=== PATIENT | female | born 1955 | race Caucasian/White ===

== ENCOUNTER 2018-08-27 11:07 | Emergency (ER) | payer OTHER ==
[~2018-08-27] VITALS: Ht 152.4 cm; Wt 62.6 kg
[2018-08-27 11:09] VITALS: Ht 152.4 cm; Wt 62.6 kg
[2018-08-27] MEDS ORDERED: IOHEXOL 100 ML ONE (11:45)
[2018-08-27] MEDS ORDERED: SOD CHLORIDE 0.9% 100 ML ONE (11:45)
[2018-08-27] MEDS ORDERED: ASPIRIN 325 MG TAB PO ONE (12:00)
--- NOTE | 2018-08-27 12:02 | STROKE ---
Date/Time of Note Date/Time of Note DATE: 08/27/18 TIME: 14:59 Patient Information General Arrival Date Age 62 Gender female Weight 62.6 kg POC Glucose Glucose Result Bedside Glucose - 72 Hours Test 08/27/18 11:25 Bedside Glucose 99 mg/dL (70-220) Vital Signs Vital Signs Vital Signs Date Temp Pulse Resp B/P (MAP) Pulse Ox O2 O2 Flow FiO2 Time Delivery Rate 08/27/18 52 18 156/78 100 Room Air 11:25 (104) 08/27/18 97.0 11:09 Labs Coagulation Labs: Coagulation Test 08/27/18 11:20 Activated Partial Thromboplast Time 27.3 Sec (23.0-35.0) NIH Stroke Scale NIH Stroke Scale Date/Time Recorded DATE: 08/27/18 TIME: 14:59 Submitted By Ruddy Shelton t-PA Imaging Review Date/Time Imaging Reviewed DATE: 08/27/18 TIME: 14:59 t-PA Administration Weight 62.6 kg Recommedation submitted by Ruddy Shelton Recommendations Recommendation 62-year-old right-handed female presenting with right sided symptoms beginning at 9;45 am while at [employer]. it started with right arm paresthesias that then spread to her right leg and right face over the course of about 30 minutes. subsequently, she had a headache that persists until this time. her blood pressure was markedly elevated at 204/86 when she arrived. it spontaneously corrected to 156/78. glucose is 99. earlier in her er visit, it was thought that perhaps she had some right arm or leg weakness. on my exam, her nih stroke scale is 1 and that is for differing sensation from the right side to the left. no drift or ataxia detected. her noncontrast head ct was normal. i suggested to her that she may have experienced hypertensive urgency. this also may have been a tia or complex migraine. she should be admitted for an mri which will help reduce the differential diagnosis. she can receive as pirin in the emergency room. RUDDY SHELTON MD Aug 27, 2018 12:02
--- NOTE | 2018-08-27 12:05 | ERD ---
ER Documentation Chief Complaint Chief Complaint NUMBNESS ON RIGHT SIDE OF BODY X 2 HRS, NO WEAKNESS, NO FACIAL DROOP HPI 62-year old female presents to the emergency department complaining of heaviness on the right side of her body. Patient was in her usual state of health until approximately 10 AM (last known well time) at which time she was at [employer]. She began developing what she describes as a heaviness, tingling and numbness on the right side of her body. Began in the right side of her face on the right side of her arm and spread to the right side of her leg. She reported a mild headache concurrent with this. She reported no left-sided symptoms. She reported no focal weakness or numbness but stated that she had some difficulty writing with her normally dominant right hand. She reported no difficulty with speech or comprehension or vision. ROS All systems reviewed and are negative except as per history of present illness. FmHx Noncontributory for chief complaint with no history of early stroke Physical Exam Vitals Vital Signs Date Temp Pulse Resp B/P (MAP) Pulse Ox O2 O2 Flow FiO2 Time Delivery Rate 08/27/18 52 18 156/78 100 Room Air 11:25 (104) 08/27/18 97.0 58 17 204/86 99 11:09 (125) Physical Exam GENERAL: The patient is well developed and appropriate for usual state of health in no apparent distress HEENT: Pupils equal, round, and reactive to light. EOMI. There is no scleral icterus. NECK: C-spine is soft and supple, there is no meningismus. There is no cervical lymphadenopathy. LUNGS: Clear to auscultation bilaterally. There are no rales, wheezes or rhonchi. HEART: Regular rate and rhythm, no murmurs, clicks, rubs or gallops. ABDOMEN: Soft, non-tender, non-distended. There are bowel sounds in all four quadrants. No rebound or guarding. EXTREMITIES: There is no peripheral cyanosis or edema. No focal swelling or erythema. NEURO: Awake, alert, oriented. Normal speech and comprehension. Extraocular movements are intact. Visual acuity is normal with no visual field deficits. Face is symmetric with normal smile and eye movement. Gag reflex is normal. Motor strength is 5 out of 5 throughout all extremities. Sensory exam is grossly nonfocal as well. Finger-nose is normal bilaterally. SKIN: There is no apparent rash or petechiae. HEME/LYMPHATIC: There is no evidence of excessive bruising or lymphedema. PSYCHIATRIC: The patient does not appear anxious or depressed. Result Diagram: 08/27/18 1120 08/27/18 1120 Results 24 hrs Laboratory Tests Test 08/27/18 11:20 08/27/18 11:25 White Blood Count 8.8 10^3/ul Red Blood Count 5.04 10^6/ul Hemoglobin 14.3 g/dl Hematocrit 43.8 % Mean Corpuscular Volume 86.9 fl Mean Corpuscular Hemoglobin 28.4 pg Mean Corpuscular Hemoglobin Concent 32.6 g/dl Red Cell Distribution Width 13.9 % Platelet Count 359 10^3/UL Mean Platelet Volume 8.6 fl Immature Granulocytes % 0.200 % Neutrophils % 47.9 % Lymphocytes % 38.2 % Monocytes % 10.4 % Eosinophils % 2.6 % Basophils % 0.7 % Nucleated Red Blood Cells % 0.0 /100WBC Immature Granulocytes # 0.020 10^3/ul Neutrophils # 4.2 10^3/ul Lymphocytes # 3.4 10^3/ul Monocytes # 0.9 10^3/ul Eosinophils # 0.2 10^3/ul Basophils # 0.1 10^3/ul Nucleated Red Blood Cells # 0.0 10^3/ul Prothrombin Time 12.5 Sec Prothrombin Time Ratio 1.0 INR International Normalized Ratio 0.92 Activated Partial Thromboplast Time 27.3 Sec Sodium Level 142 mmol/L Potassium Level 3.9 mmol/L Chloride Level 106 mmol/L Carbon Dioxide Level 30 mmol/L Anion Gap 6 Blood Urea Nitrogen 13 mg/dl Creatinine 0.79 mg/dl Est Glomerular Filtrat Rate mL/min > 60 mL/min Glucose Level 101 mg/dl Hemoglobin A1c 5.3 % Calcium Level 9.8 mg/dl Creatine Kinase 135 IU/L Creatine Kinase Index 0.9 Creatinine Kinase MB (Mass) 1.22 ng/ml Troponin I < 0.012 ng/ml Triglycerides Level 222 mg/dl Cholesterol Level 173 mg/dl LDL Cholesterol, Calculated 85 mg/dl HDL Cholesterol 44 mg/dl Cholesterol/HDL Ratio 3.9 RATIO Ethyl Alcohol Level < 10.0 mg/dl Bedside Glucose 99 mg/dL Current Medications Medications Dose Sig/Elijah Start Time Status Last (Trade) Ordered Route PRN Stop Time Admin Dose Reason Admin Iohexol 100 ml @ ud STK-MED 08/27/18 DC 08/27/18 ONCE .ROUTE 11:45 08/27/18 11:48 11:46 Sodium 100 ml @ ud STK-MED 08/27/18 DC 08/27/18 Chloride ONCE .ROUTE 11:45 08/27/18 11:49 11:46 Aspirin 325 mg ONCE ONCE 08/27/18 DC (Aspirin) PO 12:00 08/27/18 12:01 Procedures/MDM Patient was taken to a room, seen and evaluated. Comfort measures were initiated. A code stroke process was initiated Diagnostic tests were ordered and reviewed. 3 LEAD RHYTHM STRIP: Sinus bradycardia EK lead EKG reviewed by myself: Sinus bradycardia Normal [place] and intervals No ST elevation, depression, or T wave inversion Impression: Normal EKG other than the bradycardia RADIOLOGY: 1138: Code stroke CT was reviewed by the radiologist showing no indications of acute hemorrhage. 1210: CTA reviewed w/ radiology- no LVO CONSULTATION: 1122: Code stroke process was initiated and tele-neurology was paged 1200: Complete consultation via telemedicine device by the tele-neurologist was performed. This indicated a completely normal neurologic examination with an NIHSS of 0 REEVALUATION: Patient's initial neurologic examination showed an NIHSS of possibly 1. This resolved to an NIHSS of 0 upon reevaluation at 1200 p.m. MEDICAL DECISION MAKING: Patient presents with acute neurologic changes concerning for a stroke. Patient's initial presenting symptoms were mild at best and resolved completely normal. Based on her resolution of symptoms this may be a TIA especially given her high blood pressure which spontaneously controlled. Her symptoms did seem to resolve/improve upon resolution of her hypertension and this may be causative of her symptoms. She will be admitted for MRI and further diagnostic work-up Critical care time:> 35 minutes Critical care has included ongoing critical monitoring of neurologic as well as hemodynamic status. Multiple consultations including: Code stroke: Upon arrival Tele neurology: 1123 Radiology: As above TPA: Not a candidate as she has had complete resolution of symptoms Intravascular decision making: Not a candidate as the patient has had complete resolution of symptoms Departure Diagnosis: Primary Impression: TIA (transient ischemic attack) Additional Impression: Accelerated hypertension Condition: JESSY Velez Aug 27, 2018 12:05
[2018-08-27] MEDS ORDERED: ONDANSETRON 4 MG INJ IV PRN ×2 (12:30→15:00)
[2018-08-27] MEDS ORDERED: ACETAMINOPHEN 325 MG TAB PO PRN ×2 (12:30→15:00)
[2018-08-27] MEDS ORDERED: FAMO20TA18 PO (12:32)
[2018-08-27] MEDS ORDERED: CALC-133 PO (12:33)
--- NOTE | 2018-08-27 14:54 | HP ---
Date/Time of Note Date/Time of Note DATE: 08/27/18 TIME: 14:48 Assessment/Plan VTE Prophylaxis Pharmacological prophylaxis: LMWH Lines/Catheters IV Catheter Type [facility]from [facility] [place] Assessment/Plan Hospital Course 1. Right-sided weakness secondary to TIA versus atypical migraine hemiplegia Patient's symptoms of right-sided weakness with elevated blood pressure do raise concerns for TIA Migraine hemiplegia on differential merely because of headache which coincided with onset of symptoms Follow-up on MRI brain, carotid ultrasound and 2D echo Neurology consultation obtained Blood pressure now stable 2. Hypertensive urgency Patient has no history of hypertension, blood pressure now stable without medical intervention Monitor Prophylaxis: Lovenox Result Diagram: 08/27/18 1120 08/27/18 1120 Results 24hrs Laboratory Tests Test 08/27/18 11:20 08/27/18 11:25 08/27/18 12:32 White Blood Count 8.8 Red Blood Count 5.04 Hemoglobin 14.3 Hematocrit 43.8 Mean Corpuscular Volume 86.9 Mean Corpuscular Hemoglobin 28.4 L Mean Corpuscular Hemoglobin Concent 32.6 Red Cell Distribution Width 13.9 Platelet Count 359 Mean Platelet Volume 8.6 Immature Granulocytes % 0.200 Neutrophils % 47.9 Lymphocytes % 38.2 Monocytes % 10.4 Eosinophils % 2.6 Basophils % 0.7 Nucleated Red Blood Cells % 0.0 Immature Granulocytes # 0.020 Neutrophils # 4.2 Lymphocytes # 3.4 H Monocytes # 0.9 Eosinophils # 0.2 Basophils # 0.1 Nucleated Red Blood Cells # 0.0 Prothrombin Time 12.5 Prothrombin Time Ratio 1.0 INR International Normalized Ratio 0.92 Activated Partial Thromboplast Time 27.3 Sodium Level 142 Potassium Level 3.9 Chloride Level 106 Carbon Dioxide Level 30 Anion Gap 6 Blood Urea Nitrogen 13 Creatinine 0.79 Est Glomerular Filtrat Rate mL/min > 60 Glucose Level 101 Hemoglobin A1c 5.3 Calcium Level 9.8 Creatine Kinase 135 Creatine Kinase Index 0.9 Creatinine Kinase MB (Mass) 1.22 Troponin I < 0.012 Triglycerides Level 222 H Cholesterol Level 173 LDL Cholesterol, Calculated 85 HDL Cholesterol 44 Cholesterol/HDL Ratio 3.9 Ethyl Alcohol Level < 10.0 H Bedside Glucose 99 Urine Color COLORLESS Urine Clarity CLEAR Urine pH 8.0 Urine Specific [place] 1.026 Urine Ketones NEGATIVE Urine Nitrite NEGATIVE Urine Bilirubin NEGATIVE Urine Urobilinogen NEGATIVE Urine Leukocyte Esterase NEGATIVE Urine Hemoglobin NEGATIVE Urine Glucose NEGATIVE Urine Total Protein NEGATIVE Urine Opiates Screen Negative Urine Barbiturates Negative Urine Amphetamines Screen Negative Urine Benzodiazepines Screen Negative Urine Cocaine Screen Negative Urine Cannabinoids Negative HPI/ROS Admit Date/Time Admit Date/Time August 27, 2018 Hx of Present Illness Patient is a 62-year-old female with no medical history, patient presents with right-sided weakness involving upper and lower extremities that began this morning. Patient states that she initially felt numbness and tingling in her hands and feet and ultimately reported weakness in her lower extremity. Patient had no reported difficulties with speech and no facial droop. Patient did report a headache that began immediately after the onset of symptoms. Patient denies any chest pain, fever or chills. Patient has no history of stroke. In the ER patient's systolic blood pressure was greater than 200 and has since normalized on its own. CT head in the ER shows no significant findings and CT of the head and neck show mild intracranial atherosclerotic calcifications. Patient symptoms have resolved and she currently denies any weakness. ROS Constitutional: no complaints, improved Eyes: no complaints ENT: no complaints Respiratory: no complaints Cardiovascular: no complaints Gastrointestinal: no complaints Genitourinary: no complaints Musculoskeletal: no complaints Skin: no complaints Neurologic: focal-weakness, headache Endocrine: no complaints Lymphatic: no complaints Psychological: no complaints, nl mood/affect Immunologic: no complaints PMH/Family/Social Past Medical History Medical History: no pertinent history Medications Current Medications Ondansetron HCl (Zofran Inj) 4 mg ER BRIDGE PRN IV NAUSEA/VOMITING; Start 08/27/18 at 12:30; Stop 08/28/18 at 12:29 Acetaminophen (Tylenol Tab) 650 mg ER BRIDGE PRN PO .MILD PAIN 1-3 OR TEMP; Start 08/27/18 at 12:30; Stop 08/28/18 at 12:29 Coded Allergies: No Known Allergy (Unverified , 08/27/18) Family History Significant Family History: no pertinent family hx Social History Alcohol Use: none Smoking Status: Never smoker Drug Use: none Exam/Review of Systems Vital Signs Vitals Vital Signs Date Temp Pulse Resp B/P (MAP) Pulse Ox O2 O2 Flow FiO2 Time Delivery Rate 08/27/18 98.9 51 22 137/79 99 Room Air 12:28 (98) Exam Constitutional: alert, oriented Respiratory: clear to auscultation Cardiovascular: regular rate and rhythm Gastrointestinal: soft; No distended Musculoskeletal: nl extremities to inspection Neurological: [employer] II-XII intact, nl strength; No focal weakness LILLY HAMM Aug 27, 2018 14:54
[2018-08-27] MEDS ORDERED: morphine 2 MG INJ IV PRN (15:00)
[2018-08-27] MEDS ORDERED: NACL 0.9% 3 ML SYG IV SCH (15:00)
[2018-08-27] MEDS ORDERED: hydrALAzine 20 MG INJ IV PRN (15:00)
[2018-08-27] MEDS ORDERED: HYDROCODONE/APAP (5/325) TAB PO PRN (15:00)
[2018-08-27] MEDS ORDERED: ZOLPIDEM 5 MG TAB PO PRN (15:00)
[2018-08-27] MEDS ORDERED: LORAZEPAM 0.5 MG TAB PO ONE (16:00)
[2018-08-27] MEDS ORDERED: ATORVASTATIN 40 MG TAB PO SCH (21:00)
[2018-08-27] MEDS ORDERED: FAMOTIDINE 20 MG TAB PO SCH (21:00)
[2018-08-27] MEDS ORDERED: CALCIUM/VITAMIN D (500/200) TAB PO SCH (21:00)
[2018-08-28] MEDS ORDERED: ASPIRIN (EC) 325 MG TAB PO SCH (09:00)
[2018-08-28] MEDS ORDERED: ENOXAPARIN 40 MG/0.4 ML SYG SC SCH (09:00)
--- NOTE | 2018-08-28 12:29 | CONSI ---
Assessment/Plan Assessment/Plan Assessment/Plan (Recall) 62 F c/o known cerebrovascular risk factors, who presents for evaluation of transient right sided weakness and numbness... The clinical picture is most ominously concerning for TIA/minor stroke. Complicated migraine is a Dx of exclusion... Head CT is without acute pathology CTA Head and Neck shows mild intracranial athero UDS neg; a1c nl; LDL 85 P: MRI brain for further characterization Await echo read Add ESR, RPR Agree w/ asa/lipitor daily for now PT/OT/ST not presently indicated Other management and supportive care per primary Will follow clinically Consultation Date/Type/Reason Admit Date/Time August 27, 2018 Type of Consult Neurology Reason for Consultation transient weakness and sensory loss Requesting Provider: LILLY HAMM Date/Time of Note DATE: 08/28/18 TIME: 12:24 Hx of Present Illness Patient is a 62-year-old female with no medical history, patient presents with right-sided weakness involving upper and lower extremities that began this morning. Patient states that she initially felt numbness and tingling in her hands and feet and ultimately reported weakness in her lower extremity. Patient had no reported difficulties with speech and no facial droop. Patient did report a headache that began immediately after the onset of symptoms. Patient denies any chest pain, fever or chills. Patient has no history of stroke. In the ER patient's systolic blood pressure was greater than 200 and has since normalized on its own. CT head in the ER shows no significant findings and CT of the head and neck show mild intracranial atherosclerotic calcifications. Patient symptoms have resolved and she currently denies any weakness. per HPI Objective Exam Vitals Vital Signs Date Temp Pulse Resp B/P (MAP) Pulse Ox O2 O2 Flow FiO2 Time Delivery Rate 08/28/18 47 16 123/61 100 Room Air 05:42 (81) 08/27/18 98.9 12:28 Exam PE: Gen Appearance: No Apparent Distress HEENT: Normocephalic Cardiovascular: Regular rate Lungs: Clear bilaterally Abdomen: Soft Extremities: Dry NE: The patient was alert and oriented, able to spell WORLD backwards, and able to recall all three words after a five minute delay. Language was normal. Fund of knowledge was normal. Pupils were equal and reactive to light. There was no afferent pupillary defect. Visual johnson were normal. Funduscopic examination was limited. Extra-ocular movements were full. Ptosis was absent. There was no nystagmus. Facial sensation was normal. Face was symmetric with normal strength. Hearing was intact. Palate movements were normal. Neck strength was normal. There was normal tongue bulk and speed of movement. Tone was normal. Muscle bulk was normal. I did not see fasciculations. Arms and legs were strong. Vibration sensation was normal. Temperature and pinprick sensation was normal. Rapid alternating movements were normal. There was no dysmetria. There was no intention tremor. Gait was deferred due to bedrest. Arm and leg reflexes were 2+ and symmetric. Sanders's sign was absent. Plantar responses were flexor. Results Result Diagram: 08/28/18 0555 08/28/18 0555 Results 24hrs Laboratory Tests Test 08/27/18 12:32 08/28/18 05:55 Urine Color COLORLESS Urine Clarity CLEAR Urine pH 8.0 Urine Specific [place] 1.026 Urine Ketones NEGATIVE Urine Nitrite NEGATIVE Urine Bilirubin NEGATIVE Urine Urobilinogen NEGATIVE Urine Leukocyte Esterase NEGATIVE Urine Hemoglobin NEGATIVE Urine Glucose NEGATIVE Urine Total Protein NEGATIVE Urine Opiates Screen Negative Urine Barbiturates Negative Urine Amphetamines Screen Negative Urine Benzodiazepines Screen Negative Urine Cocaine Screen Negative Urine Cannabinoids Negative White Blood Count 7.0 # Red Blood Count 4.76 Hemoglobin 13.7 Hematocrit 41.3 Mean Corpuscular Volume 86.8 Mean Corpuscular Hemoglobin 28.8 L Mean Corpuscular Hemoglobin Concent 33.2 Red Cell Distribution Width 13.9 Platelet Count 330 Mean Platelet Volume 8.6 Immature Granulocytes % 0.100 Neutrophils % 46.0 Lymphocytes % 38.9 Monocytes % 10.0 Eosinophils % 4.0 Basophils % 1.0 Nucleated Red Blood Cells % 0.0 Immature Granulocytes # 0.010 Neutrophils # 3.2 Lymphocytes # 2.7 Monocytes # 0.7 Eosinophils # 0.3 Basophils # 0.1 Nucleated Red Blood Cells # 0.0 Sodium Level 143 Potassium Level 4.4 Chloride Level 109 Carbon Dioxide Level 27 Anion Gap 7 Blood Urea Nitrogen 15 Creatinine 0.88 Est Glomerular Filtrat Rate mL/min > 60 Glucose Level 92 Calcium Level 9.0 Phosphorus Level 4.5 Magnesium Level 2.2 Total Bilirubin 0.9 Direct Bilirubin 0.00 Indirect Bilirubin 0.9 Aspartate Amino Transf (AST/SGOT) 34 Alanine Aminotransferase (ALT/SGPT) 30 Alkaline Phosphatase 78 Total Protein 7.1 Albumin 3.7 Globulin 3.40 H Albumin/Globulin Ratio 1.08 Free Thyroxine Index 2.45 Thyroxine (T4) 8.1 Triiodothyronine (T3) Uptake 30.2 Past Medical History Medical History: no pertinent history Home Meds Reported Medications Calcium Carbonate/Vitamin D3 (Oyster Shell Calcium +D Tablet) 1 Each Tablet, 1 EACH PO BID, TAB 08/27/18 Famotidine* (Famotidine*) 20 Mg Tablet, 20 MG PO BID, #60 TAB 08/27/18 Medications Current Medications IV Flush (NS 3 ml) 3 ml PER PROTOCOL IV ; Start 08/27/18 at 15:00 Ondansetron HCl (Zofran Inj) 4 mg Q6H PRN IV NAUSEA/VOMITING; Start 08/27/18 at 15:00 Acetaminophen (Tylenol Tab) 650 mg Q6H PRN PO .PAIN 1-3 OR TEMP; Start 08/27/18 at 15:00 Acetaminophen/ Hydrocodone Bitart (Mobile (5/325)) 1 tab Q6H PRN PO .MOD PAIN 4- 6; Start 08/27/18 at 15:00 Morphine Sulfate (morphine) 2 mg Q4H PRN IV .SEVERE PAIN 7-10; Start 08/27/18 at 15:00 Zolpidem Tartrate (Ambien) 5 mg QHS PRN PO .INSOMNIA; Start 08/27/18 at 15:00 Enoxaparin Sodium (Lovenox) 40 mg DAILY SC ; Start 08/28/18 at 09:00 Aspirin (Ecotrin) 325 mg DAILY PO ; Start 08/28/18 at 09:00 Atorvastatin Calcium (Lipitor) 40 mg HS PO ; Start 08/27/18 at 21:00 Calcium/Vitamin D (Oyster Shell/ Vit-D (500/200)) 1 tab BID PO ; Start 08/27/18 at 21:00 Famotidine (Pepcid) 20 mg BID PO ; Start 08/27/18 at 21:00 Hydralazine HCl (Apresoline) 10 mg Q4H PRN IV SBP>190; Start 08/27/18 at 15:00 Allergies: Coded Allergies: No Known Allergy (Unverified , 08/27/18) Social History Alcohol Use: none Smoking Status: Never smoker Drug Use: none JOY RODRIGUEZ Aug 28, 2018 12:29
[2018-08-28] MEDS ORDERED: ATOR20TA38 PO (16:40)
[2018-08-28] MEDS ORDERED: ASPI-817 PO (16:40)
--- NOTE | 2018-08-28 16:41 | PDOCDIS ---
Discharge Instructions DIAGNOSIS Discharge Diagnosis TIA CONDITION [id number] Patient Condition: [id number] Stable FOLLOW UP/APPOINTMENTS Follow-up Plan Make an appointment to see your primary care doctor as soon as possible Start taking aspirin and atorvastatin as prescribed Return to the hospital immediately if you have any concerning symptoms DAVE WHEAT MD Aug 28, 2018 16:41
--- NOTE | 2018-08-28 16:44 | DS ---
Date/Time of Note Date/Time of Note DATE: 08/28/18 TIME: 16:42 Discharge Summary Admission/Discharge Info Admit Date/Time Discharge Date/Time Discharge Diagnosis TIA Patient Condition: Stable Hospital Course The patient was ruled out for acute stroke with MRI of the brain which showed no acute ischemia. CT angiography showed patient vasculature with mild atherosclerotic disease. She was seen by Dr Nails from neurology who recommended aspirin and statin and cleared the patient for discharge. her symptoms were likely attributable to possible migraine with aura versus TIA. She was encouraged to return to the emergency room nat if her symptoms recur Home Meds Reported Medications Calcium Carbonate/Vitamin D3 (Oyster Shell Calcium +D Tablet) 1 Each Tablet, 1 EACH PO BID, TAB 08/27/18 Famotidine* (Famotidine*) 20 Mg Tablet, 20 MG PO BID, #60 TAB 08/27/18 Follow-up Plan Make an appointment to see your primary care doctor as soon as possible Start taking aspirin and atorvastatin as prescribed Return to the hospital immediately if you have any concerning symptoms Primary Care Provider Not On Staff Doctor Pending Labs Laboratory Tests Test 08/28/18 05:55 White Blood Count 7.0 10^3/ul (4.8-10.8) Red Blood Count 4.76 10^6/ul (4.20-5.40) Hemoglobin 13.7 g/dl (12.0-16.0) Hematocrit 41.3 % (37.0-47.0) Mean Corpuscular Volume 86.8 fl (82.0-101.0) Mean Corpuscular Hemoglobin 28.8 pg (29.0-33.0) Mean Corpuscular Hemoglobin Concent 33.2 g/dl (32.0-37.0) Red Cell Distribution Width 13.9 % (11.5-14.5) Platelet Count 330 10^3/UL (140-415) Mean Platelet Volume 8.6 fl (7.4-10.4) Immature Granulocytes % 0.100 % (0.001-0.429) Neutrophils % 46.0 % (39.0-77.0) Lymphocytes % 38.9 % (15.0-51.0) Monocytes % 10.0 % (0.0-11.0) Eosinophils % 4.0 % (0.0-7.0) Basophils % 1.0 % (0.0-2.0) Nucleated Red Blood Cells % 0.0 /100WBC (0.0-0.0) Immature Granulocytes # 0.010 10^3/ul (0.0-0.031) Neutrophils # 3.2 10^3/ul (1.6-7.5) Lymphocytes # 2.7 10^3/ul (0.8-2.9) Monocytes # 0.7 10^3/ul (0.3-0.9) Eosinophils # 0.3 10^3/ul (0.0-0.5) Basophils # 0.1 10^3/ul (0.0-0.1) Nucleated Red Blood Cells # 0.0 10^3/ul (0.0-0.0) Sodium Level 143 mmol/L (135-144) Potassium Level 4.4 mmol/L (3.5-5.1) Chloride Level 109 mmol/L (97-110) Carbon Dioxide Level 27 mmol/L (21-31) Anion Gap 7 (5-13) Blood Urea Nitrogen 15 mg/dl (7-20) Creatinine 0.88 mg/dl (0.44-1.00) Est Glomerular Filtrat Rate mL/min > 60 mL/min (>60) Glucose Level 92 mg/dl (70-220) Calcium Level 9.0 mg/dl (8.4-10.2) Phosphorus Level 4.5 mg/dl (2.5-4.9) Magnesium Level 2.2 mg/dl (1.7-2.5) Total Bilirubin 0.9 mg/dl (0.2-1.3) Direct Bilirubin 0.00 mg/dl (0.00-0.20) Indirect Bilirubin 0.9 mg/dl (0-1.1) Aspartate Amino Transf (AST/SGOT) 34 IU/L (15-46) Alanine Aminotransferase (ALT/SGPT) 30 IU/L (13-69) Alkaline Phosphatase 78 IU/L (42-121) Total Protein 7.1 g/dl (6.1-8.1) Albumin 3.7 g/dl (3.3-4.9) Globulin 3.40 g/dl (1.3-3.2) Albumin/Globulin Ratio 1.08 Free Thyroxine Index 2.45 ug/ml (0.65-3.89) Thyroxine (T4) 8.1 ug/dl (5.5-11.0) Triiodothyronine (T3) Uptake 30.2 % (23.5-40.5) DAVE WHEAT MD Aug 28, 2018 16:44
[2018-08-28 17:17] VITALS: BP 113/76; PULSE 59; RESP 18
--- NOTE | 2018-08-29 00:20 | RADRPT ---
Echocardiogram Report Patient Name: MANUELA NYCAPatient ID: [id number] : 1955 (62y 10m)Study Date: 08/28/2018 8:33:42 AM Gender: FAccession #: [id number] Tech: MT Location: [facility] Ref.Physician: LILLY HAMM Height(Cm): BSA: Weight(Kg): Quality: AdequateOrder Physician: LILLY HAMM Account #: Procedures: Echocardiographic Report: Transthoracic echocardiogram with complete 2D, M-Mode, and doppler examination. Indications: Cerebrovascular Accident. Measurements: 2D/M Mode Doppler Measurement Value Normal Range Measurement Value Normal Range LVIDd 2D 3.9 [ 3.8 - 5.2 ] cm AV Peak Ellis 1.2 [ 100.0 - 170.0 ] cm/sec LVIDs 2D 2.0 [ 2.2 - 3.5 ] cm AV Peak PG 6.0 [ 2.0 - 9.0 ] mmHg LVPWd 2D 0.8 [ 0.6 - 0.9 ] cm LVOT Peak Ellis 1.0 [ 70.0 - 110.0 ] cm/sec IVSd 2D 0.9 [ 0.6 - 0.9 ] cm LVOT Peak PG 4.0 [ 2.0 - 6.0 ] mmHg IVS/LVPW 2D 1.0 ratio MV E Peak Ellis 0.8 [ 60.0 - 130.0 ] cm/sec AoR Diam 2D 2.4 [ 2.3 - 3.1 ] cm MV A Peak Ellis 0.9 [ 100.0 - 120.0 ] cm/sec LA/Ao 2D 1 ratio MV E/A 0.8 [ 0.8 - 1.5 ] ratio LA Dimen 2D 2.7 [ 2.7 - 3.8 ] cm MV Decel Time 211 [ 104 - 258 ] msec Lat E` Ellis 0.1 [ 10.0 - 15.0 ] cm/sec MV E/A 0.8 [ 0.8 - 1.5 ] ratio TR Peak Ellis 2.0 [ 100.0 - 280.0 ] cm/sec TR Peak PG 16.0 mmHg RVSP 19.0 [ 10.0 - 36.0 ] mmHg RA Pressure 3.0 mmHg Findings: Left Ventricle: Normal left ventricular systolic function. Normal left ventricular cavity size. Normal left ventricular wall thickness. Ejection fraction is visually estimated at 60 %. Tissue Doppler/Mitral Doppler indices are consistent with impaired relaxation (Stage I diastolic dysfunction). Right Ventricle: Normal right ventricular size. Normal right ventricular systolic function. Left Atrium: The left atrium is normal in size. Right Atrium: The right atrium is normal in size. Mitral Valve: Normal appearance and function of the mitral valve with trace physiologic regurgitation. Aortic Valve: Normal appearance of the aortic valve. No significant aortic stenosis or insufficiency. Tricuspid Valve: Normal appearance and function of the tricuspid valve with trace physiologic regurgitation. Normal right ventricular systolic pressure. The estimated Peak RVSP is 19 mmHg. Pulmonic Valve: Normal pulmonic valve appearance. Pericardium: Normal pericardium with no significant pericardial effusion. Aorta: Normal aortic root. IVC: Normal size and normal respiratory collapse consistent with normal right atrial pressure. Conclusions: Normal left ventricular systolic function. Normal left ventricular cavity size. Normal left ventricular wall thickness. Ejection fraction is visually estimated at 60 %. Tissue Doppler/Mitral Doppler indices are consistent with impaired relaxation (Stage I diastolic dysfunction). Normal appearance and function of the mitral valve with trace physiologic regurgitation. Normal appearance and function of the tricuspid valve with trace physiologic regurgitation. Normal right ventricular systolic pressure. The estimated Peak RVSP is 19 mmHg. Electronically Signed By: Darnell Friend 2018-08-28 19:29:44 PDT
== END 2018-08-28 17:15 | disposition home or self-care (01) ==
LOC: E/R 11:07 → EDBEDREQSVC 12:43 → SUATTDRO 08-28 11:19 → E/R 08-28 17:15 → CANBEDREQ 08-29 08:00
PROVIDERS: ATTEND Internal Medicine
DX: G45.9 Transient cerebral ischemic attack, unspecified (principal); I10 Essential (primary) hypertension; R40.2142 Coma scale, eyes open, spontaneous, at arrival to emergency department; R40.2362 Coma scale, best motor response, obeys commands, at arrival to emergency department; R40.2252 Coma scale, best verbal response, oriented, at arrival to emergency department
CPT/HCPCS: 36415; 70450; 70496; 70498; 70552; 71045; 80048; 80053; 80061; 80307; 81003; 82550; 82553; 82962; 83036; 83735; 84100; 84436; 84479; 84484; 85025; 85610; 85651; 85730; 86592; 86850; 86900; 86901; 93005; 93306; 93880; 97161; Q9967; Z7502; Z7610